=== PATIENT | female | born 1950 | race American Indian/Alaskan Native ===

== ENCOUNTER 2019-04-08 10:23 | Inpatient (IN) | payer MEDICARE ==
[2019-04-08] MEDS ORDERED: NORMODYNE IV ONE (11:13)
--- NOTE | 2019-04-08 11:29 | Emergency Department Report ---
ED General Adult HPI - General Chief complaint: Dizziness Stated complaint: BP HIGH Time Seen by Provider: 04/08/19 11:02 Source: patient Mode of arrival: Ambulatory Limitations: No Limitations - History of Present Illness Initial comments: This is a 68-year-old female who is noncompliant with her blood pressure medicine. She states that she is here on vacation and didn't bring it along. She can tell me that she has stage III chronic kidney disease. She notes that she has previously been on amlodipine and lisinopril in the past. However she does not know what her blood pressure regimen is right now. She mentions a history of hyperlipidemia as well. Patient states that she did have headaches yesterday. She felt somewhat dizzy today. She feels as if her legs were tight but they're not yet swollen. She has experienced this in the past. She does not complain of chest pain. Contrary to her triage record she is not complaining of visual blurring but thinks this may happen soon as she has previously experienced with her blood pressure out of control. She does not complain of shortness of breath. -: Gradual, hour(s), days(s) Location: head Radiation: non-radiation Quality: dull Consistency: now resolved Improves with: none Worsens with: none Associated Symptoms: denies other symptoms (except as above indicated) - Related Data Allergies Allergy/AdvReac Type Severity Reaction Status Date / Time No Known Allergies Allergy Verified 04/08/19 10:28 ED Review of Systems ROS: Stated complaint: BP HIGH Other details as noted in HPI Constitutional: other (dizziness). denies: chills, fever Eyes: denies: eye pain, eye discharge, vision change ENT: denies: ear pain, throat pain Respiratory: denies: cough, shortness of breath, wheezing Cardiovascular: denies: chest pain, palpitations Endocrine: no symptoms reported Gastrointestinal: denies: abdominal pain, nausea, diarrhea Genitourinary: denies: urgency, dysuria, discharge Musculoskeletal: denies: back pain, joint swelling, arthralgia Skin: denies: rash, lesions Neurological: headache (yesterday resolved today). denies: weakness, paresthesias Psychiatric: denies: anxiety, depression Hematological/Lymphatic: denies: easy bleeding, easy bruising ED Past Medical Hx - Past Medical History Previous Medical History?: Yes Hx Hypertension: Yes - Surgical History Past Surgical History?: No - Social History Smoking Status: Never Smoker Substance Use Type: None ED Physical Exam - General Limitations: No Limitations General appearance: alert, in no apparent distress - Head Head exam: Present: atraumatic, normocephalic - Eye Eye exam: Present: normal appearance. Absent: scleral icterus - ENT ENT exam: Present: mucous membranes moist - Neck Neck exam: Present: normal inspection. Absent: tenderness, meningismus - Respiratory Respiratory exam: Present: normal lung sounds bilaterally. Absent: respiratory distress - Cardiovascular Cardiovascular Exam: Present: regular rate, normal rhythm. Absent: systolic murmur, diastolic murmur, rubs, gallop - GI/Abdominal GI/Abdominal exam: Present: soft, normal bowel sounds. Absent: distended, tenderness, guarding, rebound, rigid - Extremities Exam Extremities exam: Present: normal inspection. Absent: pedal edema, calf tenderness - Back Exam Back exam: Present: normal inspection - Neurological Exam Neurological exam: Present: alert, oriented X3, CN II-XII intact, normal gait. Absent: motor sensory deficit - Psychiatric Psychiatric exam: Present: normal affect, normal mood - Skin Skin exam: Present: warm, dry, intact, normal color. Absent: rash ED Course Vital Signs 04/08/19 04/08/19 04/08/19 10:28 11:09 11:16 Temperature 98.9 F Pulse Rate 95 H Respiratory 16 Rate Blood Pressure 241/122 215/105 215/105 O2 Sat by Pulse 96 96 96 Oximetry 04/08/19 04/08/19 04/08/19 11:30 11:49 12:00 Temperature Pulse Rate Respiratory Rate Blood Pressure 215/105 179/96 O2 Sat by Pulse 96 95 95 Oximetry 04/08/19 04/08/19 04/08/19 12:23 12:31 12:45 Temperature Pulse Rate Respiratory Rate Blood Pressure 215/105 174/73 174/73 O2 Sat by Pulse 96 94 96 Oximetry 04/08/19 04/08/19 04/08/19 13:00 13:15 13:30 Temperature Pulse Rate Respiratory Rate Blood Pressure 185/93 202/114 203/102 O2 Sat by Pulse 92 96 95 Oximetry 04/08/19 13:45 Temperature Pulse Rate Respiratory Rate Blood Pressure 179/96 O2 Sat by Pulse 94 Oximetry - Reevaluation(s) Reevaluation #1: She now states her headache is worsening. She also states that she feels weak when she walks. She remains neurologically intact her NIH stroke score is 0. I have advised admission. Her blood pressure is now 171/95. Discussed with hospitalist and presumably admit. 04/08/19 14:41 ED Medical Decision Making - Lab Data Result diagrams: 04/08/19 11:19 04/08/19 11:19 Laboratory Results - last 24 hr 04/08/19 04/08/19 04/08/19 11:19 11:19 11:19 WBC 4.4 L RBC 5.15 H Hgb 13.8 Hct 42.6 MCV 83 MCH 27 L MCHC 32 RDW 14.1 Plt Count 257 Lymph % (Auto) 28.3 [place] % (Auto) 5.8 Eos % (Auto) 2.1 Baso % (Auto) 0.9 Lymph # 1.3 [place] # 0.3 Eos # 0.1 Baso # 0.0 Seg Neutrophils % 62.9 Seg Neutrophils # 2.8 PT 13.3 INR 1.04 APTT 25.5 Sodium 141 Potassium 4.0 Chloride 106.0 Carbon Dioxide 21 L Anion Gap 18 BUN 23 H Creatinine 1.2 Estimated GFR 54 BUN/Creatinine Ratio 19 Glucose 102 H Calcium 9.3 Magnesium 2.20 Total Bilirubin 0.30 Direct Bilirubin < 0.2 AST 17 ALT 12 Alkaline Phosphatase 129 Total Creatine Kinase 87 CK-MB (CK-2) 1.8 CK-MB (CK-2) Rel Index 2.0 Troponin T < 0.010 NT-Pro-B Natriuret Pep 133.1 Total Protein 7.6 Albumin 4.1 Albumin/Globulin Ratio 1.2 - Radiology Data Radiology results: report reviewed, image reviewed interpreted by me: 2 head no acute process Critical care attestation.: If time is entered above; I have spent that time in minutes in the direct care of this critically ill patient, excluding procedure time. ED Disposition Clinical Impression: Accelerated hypertension, Dizziness Cephalalgia Qualifiers: Headache type: unspecified Headache chronicity pattern: acute headache Intractability: intractable Qualified Code(s): R51 - Headache Disposition: OP ADMIT IP TO THIS HOSP Is pt being admited?: Yes Does the pt Need Aspirin: Yes Condition: Stable Instructions: Hypertension (ED) Referrals: [facility] MD LYNDON [Primary Care Provider] - 3-5 Days Time of Disposition: 14:43
[2019-04-08 11:44] LABS: Basophils % (Auto) 0.9 % (0.0-1.8); Eosinophils # (Auto) 0.1 K/mm3 (0.0-0.4); Eosinophils % (Auto) 2.1 % (0.0-4.3); Hematocrit 42.6 % (30.3-42.9); Hemoglobin 13.8 gm/dl (10.1-14.3); Lymphocytes # (Auto) 1.3 K/mm3 (1.2-5.4); Lymphocytes % (Auto) 28.3 % (13.4-35.0); Mean Corpuscular HGB Conc 32 % (30-34); Mean Corpuscular Volume 83 fl (79-97); Monocytes # (Auto) 0.3 K/mm3 (0.0-0.8); Monocytes % (Auto) 5.8 % (0.0-7.3); Platelet Count 257 K/mm3 (140-440); Red Blood Count 5.15 M/mm3 (3.65-5.03); Red Cell Distribution Width 14.1 % (13.2-15.2)
[2019-04-08 11:55] LABS: Creatine Kinase MB 1.8 ng/mL (0.0-4.0)
[2019-04-08 11:56] LABS: Alanine Aminotransferase 12 units/L (7-56); Albumin 4.1 g/dL (3.9-5); BUN/Creatinine Ratio 19; Blood Urea Nitrogen 23 mg/dL (7-17); Calcium 9.3 mg/dL (8.4-10.2); Hemolysis Index 22
[2019-04-08 12:02] LABS: Bilirubin,Direct < 0.2 mg/dL (0-0.2)
[2019-04-08 12:05] LABS: INR 1.04 (0.87-1.13)
[2019-04-08 12:06] LABS: Partial Thromboplastin Time 25.5 Sec. (24.2-36.6)
--- NOTE | 2019-04-08 12:20 | XRay Report ---
CHEST 1 VIEW 04/08/2019 11:42 AM INDICATION / CLINICAL INFORMATION: hypertension. pt presents to er with complaint of blurry vision and headache x 1 day. COMPARISON: None available. FINDINGS: SUPPORT DEVICES: None. HEART / MEDIASTINUM: Heart is upper normal size for AP portable technique. LUNGS / PLEURA: Suboptimal inspiration with mild bibasilar atelectasis. No acute airspace disease. No pneumothorax. ADDITIONAL FINDINGS: No significant additional findings. IMPRESSION: 1. No acute findings. Signer Name: Ttio Shepherd MD Signed: 04/08/2019 12:16 PM Workstation Name: [id number]
--- NOTE | 2019-04-08 12:54 | Cat Scan Report ---
CT BRAIN: 04/08/2019 INDICATION / CLINICAL INFORMATION: DZ, Vision change, HTN. COMPARISON: None available. FINDINGS: BRAIN/INTRACRANIAL STRUCTURES: Unenhanced CT images of the brain demonstrate no evidence of acute int racranial abnormality. Ventricles and sulci are slightly prominent in size, consistent with age-related atrophic change. There is no evidence of acute ischemic injury, hemorrhage, or mass. There are no abnormal extra-axial fluid collections. Atherosclerotic vascular calcifications are present in the distal internal carotid arteries and verte bral arteries. EXTRACRANIAL STRUCTURES: Unremarkable. IMPRESSION: No acute abnormality. All CT scans at this location are performed using dose reduction to ALARA by means of automated expos ure control. Signer Name: Keyon Schulte MD Signed: 04/08/2019 12:50 PM Workstation Name: [email or web address]
[2019-04-08] MEDS ORDERED: APRESOLINE IV ONE (13:23)
[2019-04-08] MEDS ORDERED: ASPIRIN PO ONE (14:43)
[2019-04-08] MEDS ORDERED: ZOFRAN IV ONE (14:44)
[2019-04-08] MEDS ORDERED: MORPHINE IV ONE (14:44)
--- NOTE | 2019-04-08 14:50 | History and Physical Report ---
History of Present Illness Chief complaint: headache History of present illness: 68 YO Female with HTN, Medication Noncompliance presents to ED for evaluation. Pt is confused and unable to provide detailed history. Pt history provided by ED staff. As per staff, the patient has experienced dizziness and headache over the past 1 day with worsening symptoms over the past 6 hours. Pt transported to [facility] via private vehicle. Pt seen and evaluated in ED and found to have blood pressure of 241/122 as well as symptoms consistent with Hypertensive Encephalopathy. Pt admitted to [facility] unit and initiated - History of Present Illness Initial comments: This is a 68-year-old female who is noncompliant with her blood pressure medicine. She states that she is here on vacation and didn't bring it along. She can tell me that she has stage III chronic kidney disease. She notes that she has previously been on amlodipine and lisinopril in the past. However she does not know what her blood pressure regimen is right now. She mentions a history of hyperlipidemia as well. Patient states that she did have headaches yesterday. She felt somewhat dizzy today. She feels as if her legs were tight but they're not yet swollen. She has experienced this in the past. She does not complain of chest pain. Contrary to her triage record she is not complaining of visual blurring but thinks this may happen soon as she has previously experienced with her blood pressure out of control. She does not complain of shortness of breath. -: Gradual, hour(s), days(s) Location: head Radiation: non-radiation Quality: dull Consistency: now resolved Improves with: none Worsens with: none Associated Symptoms: denies other symptoms (except as above indicated) Medications and Allergies Allergies Allergy/AdvReac Type Severity Reaction Status Date / Time No Known Allergies Allergy Verified 04/08/19 10:28 Home Medications Medication Instructions Recorded Confirmed Last Taken Type Labetalol [Labetalol 100mg TAB] 100 mg PO BID #60 tablet 04/08/19 Unknown Rx Lisinopril/Hydrochlorothiazide 1 each PO DAILY #30 tablet 04/08/19 Unknown Rx [Zestoretic 10-12.5 mg Tablet] Exam - Constitutional Vitals: Temp Pulse Resp BP Pulse Ox 98.9 F 95 H 16 179/96 94 04/08/19 10:28 04/08/19 10:28 04/08/19 10:28 04/08/19 13:45 04/08/19 13:45 Results - Labs CBC & Chem 7: 04/08/19 11:19 04/08/19 11:19 Labs: Abnormal lab results 04/08/19 04/08/19 Range/Units 11:19 11:19 WBC 4.4 L (4.5-11.0) K/mm3 RBC 5.15 H (3.65-5.03) M/mm3 MCH 27 L (28-32) pg Carbon Dioxide 21 L (22-30) mmol/L BUN 23 H (7-17) mg/dL Glucose 102 H (65-100) mg/dL
[2019-04-08] MEDS ORDERED: ZOFRAN IV PRN (14:56)
[2019-04-08] MEDS ORDERED: TYLENOL PO PRN (14:56)
[2019-04-08] MEDS ORDERED: SODIUM CHLORIDE FLUSH SYRINGE 10 ML IV PRN (14:56)
[2019-04-08] MEDS ORDERED: PROVENTIL IH PRN (14:56)
[2019-04-08 15:22] VITALS: BP 175/97
[2019-04-08] MEDS ORDERED: SODIUM CHLORIDE FLUSH SYRINGE 10 ML IV SCH (22:00)
== END 2019-04-08 15:47 | disposition left against medical advice (07) | DRG 79 ==
LOC: ED 10:23 → EDBD 10:23 → 2B-ACE 14:56 → ED 15:22
PROVIDERS: ADMIT Internal Medicine; ATTEND Internal Medicine
DX: I67.4 Hypertensive encephalopathy (principal); I10 Essential (primary) hypertension; R51 Headache; Z91.14 Patient's other noncompliance with medication regimen
CPT/HCPCS: 36415; 70450; 71045; 80048; 80076; 82550; 82553; 83735; 83880; 84484; 85025; 85379; 85610; 85730; 93005; 93010; 96374; 96375; G0378; J0360